=== PATIENT | female | born 1955 | race Two or more races ===

== ENCOUNTER 2024-04-20 05:52 | Day surgery (SDC) | payer OTHER ==
[~2024-04-20 05:52] MED LIST: COZAAR25 MG PO; FLONASE16 GM; TOPROL XL25 M1 PO; VOLTAREN ARTHRI20 GM; ZANAFLEX2 M1 PO
[2024-04-20] MEDS ORDERED: CHLORHEXIDINE GLUCONATE 120 ML BOTTLE TOP ONE (14:15)
[2024-04-20] MEDS ORDERED: CEFAZOLIN SODIUM 1,000 MG VIAL IV ONE (14:15)
== END 2024-04-20 15:45 | disposition home or self-care (01) ==
LOC: CIR.AMB 05:52
PROVIDERS: ATTEND Surgery
DX: C50.212 Malignant neoplasm of upper-inner quadrant of left female breast (principal); R59.0 Localized enlarged lymph nodes; Z88.5 Allergy status to narcotic agent; Z88.2 Allergy status to sulfonamides; G47.00 Insomnia, unspecified; M19.90 Unspecified osteoarthritis, unspecified site; F41.9 Anxiety disorder, unspecified
CPT/HCPCS: 19301; 38525; A9541; L8699

== ENCOUNTER 2024-05-16 09:29 | Outpatient (CLI) | payer OTHER | END 2024-05-16 09:34 | disposition home or self-care (01) | LOC: SONOGRAMA 09:29 | PROVIDERS: ATTEND Surgery | DX: S49.92XA Unspecified injury of left shoulder and upper arm, initial encounter (principal) ==

== ENCOUNTER 2024-05-16 10:25 | Outpatient (CLI) | payer OTHER | END 2024-05-16 10:26 | disposition home or self-care (01) | LOC: NUCLEAR 10:25 | PROVIDERS: ATTEND Internal Medicine | DX: I42.7 Cardiomyopathy due to drug and external agent (principal); C50.412 Malignant neoplasm of upper-outer quadrant of left female breast ==

== ENCOUNTER → 2024-10-03 09:07 | Outpatient (CLI) | payer OTHER | END | disposition home or self-care (01) | LOC: NUCLEAR 09:07 | PROVIDERS: ATTEND Internal Medicine | DX: I42.7 Cardiomyopathy due to drug and external agent (principal); C50.412 Malignant neoplasm of upper-outer quadrant of left female breast ==

== ENCOUNTER 2025-01-03 10:27 | Outpatient (CLI) | payer OTHER | END 2025-01-03 10:28 | disposition home or self-care (01) | LOC: NUCLEAR 10:27 | PROVIDERS: ATTEND Internal Medicine | DX: I42.7 Cardiomyopathy due to drug and external agent (principal) ==

== ENCOUNTER 2025-01-19 23:06 | Emergency (ER) | payer OTHER ==
[~2025-01-19] VITALS: Ht 167.6 cm; Wt 76.7 kg
[2025-01-20] MEDS ORDERED: FAMOTIDINE/PF 20 MG in 0.9 % SODIUM CHLORIDE 8 ML IV PUSH STA (01:02)
[2025-01-20 02:10] LABS: BASO % 0.4 % (0.1-1.2); EOS # 0.12 (0.04-0.54); EOS % 1.6 % (0.7-7.0); LYMPH # 1.32 (1.18-3.74); LYMPH % 17.7 % (19.3-53.1); MEAN PLATELET VOLUME 10.60 fl (9.4-12.4); MONO # 0.63 (0.24-0.82); MONO % 8.5 % (4.7-12.5); NEUT # 5.31 (1.56-6.13); NEUT % 71.4 % (34.0-71.1); RED CELL DISTRIBUTION WIDTH 14.2 % (11.6-14.4); URINE APPEARANCE Clear; URINE BILIRRUBIN Negative (NEGATIVE); URINE BLOOD Negative; URINE COLOR Yellow; URINE GLUCOSE Negative (NEGATIVE); URINE KETONE Negative (NEGATIVE); URINE LEUKOCYTE Trace; URINE NITRATE Negative; URINE PROTEIN Negative (NEGATIVE); URINE UROBILINOGEN 0.2 E.U./dl
[2025-01-20 02:14] LABS: URINE BACTERIA 22.8 uL (0.0-1933); URINE RBC 4.2 uL (0.0-20.8); URINE WBC 9.0 uL (0.0-23.2)
[2025-01-20 02:15] LABS: URINE CAST 0.00 uL (0.0-1.40); URINE EPITHELIAL CELLS 1.3 uL (0.0-38.8)
[2025-01-20 02:24] LABS: ALT/SGPT 27.0 U/L (12-78); AST/SGOT 20.0 U/L (15-37); BILIRUBIN TOTAL 0.47 mg/dL (0.3-1.2); BUN CREA RATIO 19.0 (7.0-25.0); CREATININE SERUM 0.99 mg/dL (0.55-1.02); GFR 55.95; GLOBULINA 3.7 G/DL (2.4-3.5); GLUCOSE FASTING 97.0 mg/dL (65-100); OSMOLALITY SERUM 285.0 MOSM/KG (275-295)
== END 2025-01-20 03:04 | disposition home or self-care (01) ==
LOC: ER 23:10
PROVIDERS: General Practice
DX: R10.12 Left upper quadrant pain (principal); R10.32 Left lower quadrant pain; Z88.8 Allergy status to other drugs, medicaments and biological substances; Z85.3 Personal history of malignant neoplasm of breast; I10 Essential (primary) hypertension
CPT/HCPCS: 36415; 74176; 96365; 99283; J3490

== ENCOUNTER 2025-01-21 09:44 | Outpatient (CLI) | payer OTHER | END 2025-01-21 09:48 | disposition home or self-care (01) | LOC: SONOGRAMA 09:44 | PROVIDERS: ATTEND Internal Medicine | DX: K76.0 Fatty (change of) liver, not elsewhere classified (principal); R14.0 Abdominal distension (gaseous); C50.412 Malignant neoplasm of upper-outer quadrant of left female breast ==

== ENCOUNTER 2025-05-23 10:52 | Outpatient (CLI) | payer OTHER ==
[~2025-05-23 10:52] MED LIST changes: +ACID REDUCER20 M1; +CEPHALEXIN500 M1 PO; +DRAMAMINE LESS25 MG PO; +ONDANSETRON ODT8 MG PO
== END 2025-05-23 10:53 | disposition home or self-care (01) ==
LOC: NUCLEAR 10:52
PROVIDERS: ATTEND Internal Medicine
DX: I42.7 Cardiomyopathy due to drug and external agent (principal)